=== PATIENT | male | born 1960 | race Caucasian/White ===

== ENCOUNTER 2020-05-11 16:53 | Emergency (ER) | payer MEDICARE, SELFPAY ==
[2020-05-11 16:53] VITALS: BP 181/102; PULSE 110; RESP 18; TEMP 37.1; O2SAT 98; BMI 36.5
--- NOTE | 2020-05-11 17:02 | CT_ITS ---
PROCEDURE: CT ABDOMEN PELVIS W CON CLINICAL INDICATION: swelling, abscess left groin COMPARISON: No exams were available for comparison TECHNIQUE: IV Contrast: 75ML OPTIRAY 350 Oral Contrast none given Axial images obtained with sagittal and coronal reformats. All CT scans at the facility use one or more dose reduction, viz: automated exposure control, ma/kV adjustment per patient size (including targeted exams where dose is matched to indication, i.e. head), or iterative reconstruction technique. FINDINGS: Lower thorax: The lower lung hurt are clear and there is no pleural fluid. Cardiac size is normal. ABDOMEN: Liver: No masses or biliary dilatation. Gallbladder: The gallbladder is normal size and there are multiple tiny calcified gallstones near the neck of the gallbladder. Pancreas: No masses or peripancreatic fluid collections. Spleen: unremarkable Adrenals: unremarkable Kidneys/ureters: The kidneys are normal in size and show symmetrical function. There is a tiny nonobstructing calculus lower pole left kidney. ABDOMEN & PELVIS: Stomach bowel: There is a small sliding hiatal hernia. The stomach is moderately distended with ingested food particles revised appears normal. The duodenal sweep and small bowel appear normal. The appendix is normal in caliber and partially air-filled. There is moderate stool and gas seen in the ascending colon. There is moderate gas seen throughout the remainder of the colon. There are few scattered diverticuli of the sigmoid colon but there is no evidence of diverticulitis. Peritoneum: No abnormal fluid collections. No obvious inflammatory changes. No free air. There is a moderate-sized periumbilical hernia containing fat only. The mouth of the hernia measures 6.4 cm. Lymph nodes: No enlarged lymph nodes apparent. Vasculature: There is minimal scattered arteriosclerotic calcification of the abdominal aorta but there is no aneurysm. Bones: Mild multilevel degenerate changes are seen lower thoracic and lower lumbar spine PELVIS: Reproductive: Unremarkable Bladder: The urinary bladder is mildly distended with urine and appears normal. Prostate is normal size. Appendix: Normal IMPRESSION: 1. Cholelithiasis 2. Moderate-sized periumbilical hernia containing fat only, tiny non-obstructing left renal calculus as noted. Dictated by: Dr. Buzz Kemp MD 05/12/2020 08:54 Dr. Buzz Kemp MD in [place] 05/12/2020 08:54
[2020-05-11 17:27] LABS: Basophils % 0.3 % (0.1-2.0); Eosinophils # 0.1 K/mm3 (0.0-0.4); Eosinophils % 1.5 % (0.1-12.0); Hematocrit 36.8 % (42.0-52.0); Hemoglobin 10.9 g/dL (14.1-18.0); Lymphocytes # 1.1 K/mm3 (0.7-4.5); Mean Corpuscular HGB Conc 29.6 g/dL (31.8-35.4); Mean Corpuscular Hemoglobin 26.3 pg (27.0-31.2); Mean Corpuscular Volume 88.8 fl (80-94); Mean Platelet Volume 8.6 fl (7.4-10.4); Monocytes # 0.2 K/mm3 (0.1-1.0); Monocytes % 5.2 % (1.7-9.3); Neutrophils # 2.7 K/mm3 (1.8-7.8); Platelet Count 187 K/mm3 (142-424); Red Blood Count 4.14 M/mm3 (4.60-6.20); Red Cell Distribution Width 13.4 % (11.5-17.5); White Blood Count 4.2 K/mm3 (4.8-10.8)
[2020-05-11 17:38] LABS: Chloride 104 mmol/L (98-107)
[2020-05-11 17:39] LABS: Potassium 3.6 mmoL/L (3.5-5.1); Sodium 141 mmol/L (136-145)
[2020-05-11 17:41] LABS: Blood Urea Nitrogen 8 mg/dl (9-20); Creatinine Clearance Estimated 202 mL/min (50-200); Estimated Glomerular Filt Rate 137 ml/min (>60); GFR (African American) 166 ML/MIN (>60)
[2020-05-11 17:42] LABS: Alanine Aminotransferase 24 U/L (12-78); Albumin Level 4.3 g/dl (3.5-5.0); Albumin/Globulin Ratio 1.3 (1.1-1.8); Alkaline Phosphatase 90 U/L (38-126); Anion Gap 14.6 mEq/L (5-15); Aspartate Amino Transferase 24 U/L (17-59); Bilirubin,Total 0.4 mg/dl (0.2-1.3); Calcium 9.1 mg/dl (8.4-10.2); Carbon Dioxide 26 mmol/L (22.0-30.0); Globulin 3.4 g/dL (1.3-3.2); Glucose 257 mg/dl (74-100); Total Protein,Serum 7.7 g/dl (6.3-8.2)
[2020-05-11 17:43] LABS: Lactic Acid 2.6 mmol/L (0.7-2.1)
--- NOTE | 2020-05-11 18:08 | HMH.EDSKAF ---
ED Disposition Clinical Impression: Abscess of left thigh, Tinea cruris Hypertension Qualifiers: Hypertension type: essential hypertension Qualified Code(s): I10 - Essential (primary) hypertension Disposition: Home, Self-Care Condition on Discharge: Good Instructions: DI for Skin Abscess Prescriptions: Sulfamethoxazole/Trimethoprim [Bactrim DS tablet] 1 each PO BID 10 Days #20 tab Prescription Printed cephALEXin [Keflex 500mg Cap] 500 mg PO QID 10 Days #40 cap Prescription Printed Ketoconazole [Ketoconazole 2% Cream 15gm] 1 applicatio TP TID #30 cream..g. Prescription Printed Referrals: Aníbal Fontana MD [Primary Care Provider] - Alberto Koehler MD [Staff Physician] - - Critical Care Critical Care Time: No Attestation: On 05/11/20, the high probability of a clinically significant, sudden or life threatening deterioration of the following system(s) required my full and direct attention, intervention and personal management. The time I documented below is in addition to time spent performing reported procedures but includes the following listed in this critical care notation. Medical Decision Making - Medical Records Medical records reviewed: Yes: I reviewed the patient's medical records. - Wiliam Inquiry Pt receiving controlled substance: No Vital Signs: 05/11/20 16:53 05/11/20 18:48 Temperature 98.8 F Temperature Source Oral Pulse Rate [Radial] 110 H 82 Respiratory Rate 18 20 Blood Pressure [Right Arm] 181/102 H 211/76 H Blood Pressure Mean [Right Arm] 128 121 Blood Pressure Source [Right Arm] Automatic Cuff Blood Pressure Position [Right Arm] Sitting Sitting 02 Sat by Pulse Oximetry 98 97 Oxygen Delivery Method Room Air - Lab Data Lab Results 05/11/20 17:15: WBC 4.2 L, RBC 4.14 L, Hgb 10.9 L, Hct 36.8 L, MCV 88.8, MCH 26.3 L, MCHC 29.6 L, RDW 13.4, Plt Count 187, MPV 8.6, Neut % (Auto) 66.0, Lymph % (Auto) 27.0, Luna % (Auto) 5.2, Eos % (Auto) 1.5, Baso % (Auto) 0.3, Neut # (Auto) 2.7, Lymph # (Auto) 1.1, Luna # (Auto) 0.2, Eos # (Auto) 0.1, Baso # (Auto) 0.0 05/11/20 17:15: Sodium 141, Potassium 3.6, Chloride 104, Carbon Dioxide 26, Anion Gap 14.6, BUN 8 L, Creatinine 0.60 L, Estimated Creat Clear 202, Estimated GFR 137, Est GFR ( Amer) 166, Glucose 257 H, Calcium 9.1, Total Bilirubin 0.4, AST 24, ALT 24, Alkaline Phosphatase 90, Total Protein 7.7, Albumin 4.3, Globulin 3.4 H, Albumin/Globulin Ratio 1.3 05/11/20 17:15: Lactate 2.6 H 05/11/20 18:40: Urine Color Yellow, Urine Appearance Clear, Urine pH 6.0, Ur Specific [place] 1.015, Urine Protein Negative, Urine Glucose (UA) 3+, Urine Ketones Trace, Urine Blood Negative, Urine Nitrate Negative, Urine Bilirubin Negative, Urine Urobilinogen 0.2, Ur Leukocyte Esterase Negative, Urine WBC Occasional Result diagrams: 05/11/20 17:15 05/11/20 17:15 Orders (Tests/Meds): ED MEDICATIONS Generic Name Dose Route Start Last Admin Trade Name Freq PRN Reason Stop Dose Admin Sodium Chloride 1,000 mls @ 999 mls/hr 05/11/20 17:15 05/11/20 17:17 Sod Chlor 0.9% 1000ml Bag IV 05/11/20 18:15 999 mls/hr .Q1H1M KIMBERLY Administration Ceftriaxone Sodium 1 gm/ 50 mls @ 100 mls/hr 05/11/20 19:00 05/11/20 19:00 Sodium Chloride IV 05/25/20 18:59 100 mls/hr Q24H KIMBERLY Administration Protocol Discontinued Medications Generic Name Dose Route Start Last Admin Trade Name Freq PRN Reason Stop Dose Admin Ioversol 75 ml 05/11/20 18:32 05/11/20 18:33 Ioversol-350 (74%) 100ml Vial IV 05/11/20 18:33 75 ml ONCE ONE Administration Protocol Ioversol 75 ml 05/11/20 18:35 05/11/20 18:36 Ioversol-350 (74%) 100ml Vial IV 05/11/20 18:36 75 ml ONCE ONE Administration Protocol Morphine Sulfate 4 mg 05/11/20 17:18 05/11/20 17:19 Morphine 4mg/Ml Syringe IV 05/11/20 17:19 4 mg ONCE ONE Administration Ondansetron HCl 4 mg 05/11/20 17:18 05/11/20 17:19 Ondansetron 4mg/2ml Vial IV 05/11/20 17:
[2020-05-11 18:43] LABS: Microscopic, Urine URINE MICROSCOPIC (MICROSCOPIC)
[2020-05-11 18:48] VITALS: BP 211/76; PULSE 82; RESP 20; O2SAT 97
[2020-05-11 19:03] LABS: Appearance,Urine CLEAR (Clear); Bilirubin,Urine Negative (Negative); Blood, Urine Negative (Negative); Color,Urine YELLOW (Yellow); Glucose,Urine (UA) 3+ (Negative); Ketones,Urine TRACE (Negative); Leukocyte Esterase,Urine Negative (Negative); Nitrate,Urine Negative (Negative); Protein,Urine Negative (Negative); Specific Gravity, Urine 1.015 (1.005-1.030); Urobilinogen,Urine 0.2 EU/dl (0.2)
--- NOTE | 2020-05-11 19:06 | PC.NURSE ---
daughter at bedside
[2020-05-11 19:07] LABS: WBC,Urine Occasional #/hpf (0-3)
[2020-05-11 20:27] VITALS: BP 159/75; PULSE 90; RESP 13; TEMP 36.6; O2SAT 98
== END 2020-05-11 20:33 | disposition home or self-care (01) ==
PROVIDERS: Emergency Provider Emergency Medicine; PCP Family Medicine
DX: L02.416 Cutaneous abscess of left lower limb (principal); I10 Essential (primary) hypertension; B35.6 Tinea cruris; Z88.0 Allergy status to penicillin
CPT/HCPCS: 74177; 80053; 81001; 83605; 85025; 96365; 96375; 99283; J2405; Q9967

== ENCOUNTER 2021-11-14 16:24 | Emergency (ER) | payer MEDICARE, SELFPAY ==
[2021-11-14] VITALS (7 sets, daily range): BP systolic 138–166; BP diastolic 80–93; PULSE 82–92; RESP 16–20; TEMP 36.8–37; O2SAT 98–100; BMI 25.7; BMI 25.8
--- NOTE | 2021-11-14 16:13 | ECG_ITS ---
APPROVED REPORT Exam: Resting ECG HR:94 bpm ECG Measurements Heart Rate 94 AXES ND 174 P 45 QRSd 101 QRS 14 QT 356 T 59 QTc 408 Conclusion SINUS RHYTHM NORMAL ECG UNCONFIRMED REPORT Electronically signed by : Juan Starks MD 11/16/2021 20:16:04
--- NOTE | 2021-11-14 16:26 | XR_ITS ---
PROCEDURE INFORMATION: Exam: XR Chest Exam date and time: 11/14/2021 4:25 PM Age: 61 years old Clinical indication: Pain; Chest pressure; Additional info: Chest pain TECHNIQUE: Imaging protocol: XR of the chest. Views: 2 views. COMPARISON: CR CXR2 CHEST-AP VIEW ONLY 01/12/2017 12:03 AM FINDINGS: Lungs: No lobar consolidation, pleural effusion or pulmonary edema. Pleural spaces: See Lungs finding. Heart/Mediastinum: Unremarkable. No cardiomegaly. Bones/joints: Unremarkable. IMPRESSION: No lobar consolidation, pleural effusion or pulmonary edema. Plain films are relatively insensitive for detecting any possible ground glass opacities.
[2021-11-14 16:35] LABS: Basophils # 0.1 K/mm3 (0-0.2); Basophils % 0.8 % (0.1-2.0); Eosinophils # 0.1 K/mm3 (0.0-0.4); Eosinophils % 1.5 % (0.1-12.0); Hematocrit 39.1 % (42.0-52.0); Hemoglobin 13.4 g/dL (14.1-18.0); Lymphocytes # 0.8 K/mm3 (0.7-4.5); Lymphocytes % 12.4 % (10-50); Mean Corpuscular HGB Conc 34.3 g/dL (31.8-35.4); Mean Corpuscular Hemoglobin 30.7 pg (27.0-31.2); Mean Corpuscular Volume 89.7 fl (80-94); Mean Platelet Volume 8.3 fl (7.4-10.4); Monocytes # 0.5 K/mm3 (0.1-1.0); Monocytes % 7.6 % (1.7-9.3); Neutrophils # 4.9 K/mm3 (1.8-7.8); Neutrophils % 77.8 % (37.0-80.0); Platelet Count 271 K/mm3 (142-424); Red Blood Count 4.36 M/mm3 (4.60-6.20); White Blood Count 6.2 K/mm3 (4.8-10.8)
--- NOTE | 2021-11-14 16:41 | XR_ITS ---
PROCEDURE INFORMATION: Exam: XR Right Foot Exam date and time: 11/14/2021 4:48 PM Age: 61 years old Clinical indication: Pain; Foot; Right; Additional info: Cellulitis, dropped tools onto foot last week TECHNIQUE: Imaging protocol: XR Right foot. Views: 3 or more views. COMPARISON: CR [id number] KNEE-3 VIEWS-RT 01/12/2017 12:05 AM FINDINGS: Bones/joints: Acute fractures midportion in base proximal phalanx of the 4th toe with intra-articular extension and moderate displacement of fragments. Moderate degenerative changes most evident in the 1st ray. Vascular calcifications. Calcaneal spurring. Soft tissues: Swelling. IMPRESSION: Acute fractures midportion in base proximal phalanx of the 4th toe with intra-articular extension and moderate displacement of fragments.
[2021-11-14 16:53] LABS: Anion Gap 10.2 mEq/L (5-15); Blood Urea Nitrogen 12 mg/dl (9-20); Calcium 8.6 mg/dl (8.4-10.2); Carbon Dioxide 28 mmol/L (22.0-30.0); Chloride 101 mmol/L (98-107); Creatinine Clearance Estimated 80 mL/min (50-200); Estimated Glomerular Filt Rate 219 ml/min (>60); GFR (African American) 265 ML/MIN (>60); Glucose 163 mg/dl (74-100); Potassium 3.2 mmoL/L (3.5-5.1); Sodium 136 mmol/L (136-145)
[2021-11-14 16:58] LABS: C-Reactive Protein 68.6 mg/L (0-4)
--- NOTE | 2021-11-14 17:00 | PC.NURSE ---
Updated pt on POC. Advised him MD was tied up with critical pt at this time. Pt understanding at this time. No new needs
[2021-11-14 17:09] LABS: Troponin I 0.01 ng/ml (0.00-0.034)
[2021-11-14 17:11] LABS: Erythrocyte Sedimentation Rate 48 mm/hr (0-20)
--- NOTE | 2021-11-14 18:08 | HMH.EDGENADL ---
ED Disposition Clinical Impression: Cellulitis Qualifiers: Site of cellulitis: extremity Site of cellulitis of extremity: lower extremity Laterality: right Qualified Code(s): L03.115 - Cellulitis of right lower limb Phalanx fracture, foot Qualifiers: Encounter type: initial encounter Toe: unspecified toe Fracture type: closed Fracture alignment: displaced Laterality: right Qualified Code(s): S92.911A - Unspecified fracture of right toe(s), initial encounter for closed fracture Disposition: Left Against Medical Advice Condition on Discharge: Fair Additional Instructions: Take antibiotics as directed. Please return to the ED with any worsening or concerning symptoms. You need to follow-up with your PCP on Wednesday, keep brace on for comfort. Prescriptions: Sulfamethoxazole/Trimethoprim [Bactrim DS tablet] 2 each PO BID 10 Days #40 tab Transmission Status: [facility] Cefdinir [Omnicef 300mg Capsule] 300 mg PO BID #20 cap Transmission Status: Pending to [id number] Referrals: Aníbal Fontana MD [Primary Care Provider] - - Critical Care Critical Care Time: No Attestation: On 11/14/21, the high probability of a clinically significant, sudden or life threatening deterioration of the following system(s) required my full and direct attention, intervention and personal management. The time I documented below is in addition to time spent performing reported procedures but includes the following listed in this critical care notation. Medical Decision Making - Medical Records Medical records reviewed: Yes: I reviewed the patient's medical records. - Wiliam Inquiry Pt receiving controlled substance: No Vital Signs: 11/14/21 16:25 11/14/21 16:30 11/14/21 17:00 Temperature 98.6 F Temperature Source Oral Pulse Rate 91 H 90 Pulse Rate [Left Radial] 92 H Respiratory Rate 20 18 18 Blood Pressure 138/80 161/89 H Blood Pressure [Right Arm] 138/80 Blood Pressure Mean 107 Blood Pressure Mean [Right Arm] 99 Blood Pressure Source [Right Arm] Automatic Cuff Blood Pressure Position [Right Arm] Sitting 02 Sat by Pulse Oximetry 98 100 100 Oxygen Delivery Method Room Air 11/14/21 17:30 11/14/21 18:00 11/14/21 18:30 Temperature Temperature Source Pulse Rate 88 87 89 Pulse Rate [Left Radial] Respiratory Rate 18 17 16 Blood Pressure 166/92 H 161/93 H 145/81 H Blood Pressure [Right Arm] Blood Pressure Mean 107 104 95 Blood Pressure Mean [Right Arm] Blood Pressure Source [Right Arm] Blood Pressure Position [Right Arm] 02 Sat by Pulse Oximetry 100 100 100 Oxygen Delivery Method - Lab Data Lab Results 11/14/21 16:27: WBC 6.2, RBC 4.36 L, Hgb 13.4 L, Hct 39.1 L, MCV 89.7, MCH 30.7, MCHC 34.3, RDW 13.0, Plt Count 271, MPV 8.3, Neut % (Auto) 77.8, Lymph % (Auto) 12.4, Nolan % (Auto) 7.6, Eos % (Auto) 1.5, Baso % (Auto) 0.8, Neut # (Auto) 4.9, Lymph # (Auto) 0.8, Nolan # (Auto) 0.5, Eos # (Auto) 0.1, Baso # (Auto) 0.1 11/14/21 16:27: Sodium 136, Potassium 3.2 L, Chloride 101, Carbon Dioxide 28, Anion Gap 10.2, BUN 12, Creatinine 0.40 L, Estimated Creat Clear 80, Estimated GFR 219, Est GFR ( Amer) 265, Glucose 163 H, Calcium 8.6, Troponin I 0.01 11/14/21 16:27: ESR 48 H 11/14/21 16:27: C-Reactive Protein 68.6 H Result diagrams: 11/14/21 16:27 11/14/21 16:27 Orders (Tests/Meds): ED MEDICATIONS Generic Name Dose Route Start Last Admin Trade Name Freq PRN Reason Stop Dose Admin Ondansetron HCl 4 mg 11/14/21 16:41 Ondansetron 4mg/2ml Vial IV 12/14/21 16:40 Q6 PRN Nausea And Vomiting Sodium Chloride 10 ml 11/14/21 16:25 Sodium Chloride 0.9% 10ml Flush Syringe IV 12/14/21 16:24 NEEDED PRN Maintain IV Site Discontinued Medications Generic Name Dose Route Start Last Admin Trade Name Freq PRN Reason Stop Dose Admin Oxycodone HCl 5 mg 11/14/21 16:41 11/14/21 16:45 Oxycodone 5mg Immediate Release Table
--- NOTE | 2021-11-14 18:36 | PC.NURSE ---
Let pt know MD was going to review all of his test results and let him know POC. PT agreeable
== END 2021-11-14 19:59 | disposition left against medical advice (07) ==
PROVIDERS: Emergency Provider Emergency Medicine; PCP Family Medicine
DX: L03.115 Cellulitis of right lower limb (principal); S92.911A Unspecified fracture of right toe(s), initial encounter for closed fracture; E11.9 Type 2 diabetes mellitus without complications; I10 Essential (primary) hypertension; I25.10 Atherosclerotic heart disease of native coronary artery without angina pectoris; R07.9 Chest pain, unspecified; Z88.0 Allergy status to penicillin
CPT/HCPCS: 71046; 73630; 80048; 84484; 85025; 85651; 86140; 93005; 99284

== ENCOUNTER 2022-09-07 22:44 | Emergency (ER) | payer MEDICARE, SELFPAY ==
[2022-09-07 23:21] VITALS: BP 189/119; PULSE 94; RESP 18; TEMP 36.7; O2SAT 98; BMI 27.4
--- NOTE | 2022-09-07 23:25 | HMH.EDEXTP ---
Discharge Plan Disposition Patient Disposition: Home, Self-Care Prescriptions Prescriptions: New sulfamethoxazole-trimethoprim [Bactrim DS] 800-160 mg Tablet 1 tab PO Q12H Qty: 14 0RF cephalexin [cephalexin] 500 mg capsule 500 mg PO TID Qty: 30 0RF No Action cephalexin 500 MG capsule 500 mg PO QID 10 Days Qty: 40 0RF ketoconazole 15 GM cream 1 applicatio TP TID Qty: 30 0RF sulfamethoxazole-trimethoprim 1 EACH tablet 1 each PO BID 10 Days Qty: 20 0RF sulfamethoxazole-trimethoprim 1 EACH tablet 2 each PO BID 10 Days Qty: 40 0RF cefdinir 300 MG capsule 300 mg PO BID Qty: 20 0RF Referrals Follow up/Referrals: Aníbal Fontana MD [Primary Care Provider] - See instructions Clinical Impressions Clinical Impression: Cellulitis Instructions Patient Instructions: Cellulitis Discharge ED Provider: Emmanuel (ED),Danilo Ko Extremity Problem HPI General Chief complaint: Extremity Injury, Upper Stated complaint: Right hand warm to touch, swollen,fever Time Seen by Provider: 09/07/22 23:26 Mode of Arrival: Ambulatory Source of Information: Patient, Significant Other and Medical Record Limitations: No Limitations Description of Symptoms (Recalled from ER Triage Doc. by RN): PT PRESENTS to er with c/o swelling redness and tenderness to right hand. States he injured his right hand 4 days ago while working on a car. Denies any other injury. Denies fever. Last tetanus was within the last couple of years per pt. History of Present Illness HPI Narrative: about 5 days ago with abrasion to dorsum of rt hand - and now has reddness and swelling dorsum of rt hand - MD Complaint: extremity pain and extremity swelling Onset (ago): day(s) Consistency: constant Location: right and upper extremity Related Data Previous Rx's Medication Instructions Recorded cephalexin 500 mg capsule 500 mg PO QID 10 days #40 caps 05/11/20 ketoconazole 2 % topical cream 1 applicatio TP TID ##30 05/11/20 sulfamethoxazole 800 1 each PO BID 10 days #20 tabs 05/11/20 mg-trimethoprim 160 mg tablet cefdinir 300 mg capsule 300 mg PO BID #20 caps 11/14/21 sulfamethoxazole 800 2 each PO BID 10 days #40 tabs 11/14/21 mg-trimethoprim 160 mg tablet cephalexin 500 mg capsule 500 mg PO TID #30 caps 09/08/22 sulfamethoxazole 800 1 tab PO Q12H #14 tabs 09/08/22 mg-trimethoprim 160 mg tablet (Bactrim DS) Allergies Allergy/AdvReac Type Severity Reaction Status Date / Time Penicillins [PENICILLINS] Allergy Mild Verified 05/11/20 19:00 [facility] Disclaimer: The information contained in this section may have been updated after the patient was seen, as this information can be updated by other users. Social History Smoking Status: Never smoker alcohol intake: never current occupational status: other Travel in the last 8 weeks: None household members: other housing: other ROS Obtained: Yes All systems reviewed & no additional complaints except as documented Physical Exam General General appearance: alert Head Head exam: normocephalic Eye Eye exam: Present PERRL and EOMI ENT ENT exam: Present mucous membranes moist Neck Neck exam: Present trachea midline Respiratory Respiratory exam: Absent respiratory distress Cardiovascular Cardiovascular exam: Present regular rate Abdominal Exam Abdominal exam: Present soft Expanded Upper Extremity Exam Right: Hand exam: Present tenderness, swelling, erythema and other (no drainage and has abrasion - kanavel signs ok ) Neuromotor exam: Normal wrist extension Vascular exam: Normal radial pulse Neurological Exam Neurological exam: Present alert, oriented X3 and CN II-XII intact Psychiatric Psychiatric exam: Present normal affect Skin Skin exam: Absent rash Medical Decision Making Medical Records Medical records reviewed: Yes I reviewed the patient's medical records. Wiliam Inquiry Pt receiving controlled substance: No Vital Signs:
[2022-09-07 23:52] LABS: Basophils % 0.4 % (0.1-2.0); Eosinophils # 0.2 K/mm3 (0.0-0.4); Eosinophils % 1.7 % (0.1-12.0); Hematocrit 44.2 % (42.0-52.0); Hemoglobin 14.6 g/dL (14.1-18.0); Lymphocytes # 1.8 K/mm3 (0.7-4.5); Lymphocytes % 17.9 % (10-50); Mean Corpuscular Hemoglobin 29.7 pg (27.0-31.2); Mean Corpuscular Volume 89.9 fl (80-94); Mean Platelet Volume 8.2 fl (7.4-10.4); Monocytes # 0.6 K/mm3 (0.1-1.0); Monocytes % 5.7 % (1.7-9.3); Neutrophils # 7.5 K/mm3 (1.8-7.8); Neutrophils % 74.3 % (37.0-80.0); Platelet Count 248 K/mm3 (142-424); Red Blood Count 4.92 M/mm3 (4.60-6.20); White Blood Count 10.1 K/mm3 (4.8-10.8)
[2022-09-07 23:56] LABS: Alanine Aminotransferase 25 U/L (12-78); Albumin Level 4.4 g/dl (3.5-5.0); Albumin/Globulin Ratio 1.2 (1.1-1.8); Alkaline Phosphatase 112 U/L (38-126); Anion Gap 4.9 mEq/L (5-15); Aspartate Amino Transferase 25 U/L (17-59); Bilirubin,Total 0.5 mg/dl (0.2-1.3); Blood Urea Nitrogen 11 mg/dl (9-20); Carbon Dioxide 32 mmol/L (22.0-30.0); Chloride 106 mmol/L (98-107); Creatinine Clearance Estimated 84 mL/min (50-200); Estimated Glomerular Filt Rate 168 ml/min (>60); GFR (African American) 204 ML/MIN (>60); Globulin 3.7 g/dL (1.3-3.2); Glucose 169 mg/dl (74-100); Potassium 3.9 mmoL/L (3.5-5.1); Sodium 139 mmol/L (136-145); Total Protein,Serum 8.1 g/dl (6.3-8.2)
[2022-09-07 23:59] VITALS: BP 157/84; PULSE 82; O2SAT 100
--- NOTE | 2022-09-08 | CT_ITS ---
PROCEDURE INFORMATION: Exam: CT Right Upper Extremity With Contrast, Hand Exam date and time: 09/08/2022 12:20 AM Age: 62 years old Clinical indication: Swelling and other: Redness; Patient HX: PT states he was working on a car 4-5 days ago, injured hand. Now C/O right hand redness and swelling; Additional info: Hand injury TECHNIQUE: Imaging protocol: Computed tomography of the Right upper extremity with contrast. Exam focused on the hand. 3D rendering (Not supervised by radiologist): MIP and/or 3D reconstructed images were created by the technologist. Radiation optimization: All CT scans at this facility use at least one of these dose optimization techniques: automated exposure control; mA and/or kV adjustment per patient size (includes targeted exams where dose is matched to clinical indication); or iterative reconstruction. Contrast material: ISOVUE; Contrast volume: 75 ml; Contrast route: IV; Other protocol: This patient has received 0 known CTs and 0 known cardiac nuclear medicine studies in the 12 months prior to the current study. COMPARISON: No relevant prior studies available. FINDINGS: Bones/joints: No fracture or bone destruction. Visualized radial and ulnar arteries appear patent. Soft tissues: Diffuse swelling of the right hand with subcutaneous infiltration. No significant skin thickening to indicate cellulitis. Other findings: No focal fluid collections. IMPRESSION: 1. Diffuse swelling of the right hand with subcutaneous infiltration. 2. No significant skin thickening to indicate cellulitis. 3. No focal fluid collections. 4. No fracture or bone destruction. 5. Visualized radial and ulnar arteries appear patent.
[2022-09-08 00:01] LABS: C-Reactive Protein 7.5 mg/L (0-4)
[2022-09-08 00:15] LABS: Procalcitonin 0.045 ng/mL (0.0-2.0)
--- NOTE | 2022-09-08 00:18 | PC.NURSE ---
patient gone to CT at this time.
[2022-09-08 00:27] LABS: Erythrocyte Sedimentation Rate 37 mm/hr (0-20)
--- NOTE | 2022-09-08 00:35 | PC.NURSE ---
patient back in room at this time.
== END 2022-09-08 02:36 | disposition home or self-care (01) ==
PROVIDERS: Emergency Provider Emergency Medicine; PCP Family Medicine
DX: L03.113 Cellulitis of right upper limb (principal)
CPT/HCPCS: 73201; 80053; 84145; 85025; 85651; 86140; 87040; 96365; 96367; 96375; 99285; J0131; J2405; Q9967

== ENCOUNTER 2024-05-19 20:41 | Emergency (ER) | payer MEDICARE, SELFPAY ==
[2024-05-19] VITALS (8 sets, daily range): BP systolic 156–250; BP diastolic 87–124; PULSE 80–86; RESP 22; TEMP 37; O2SAT 94–97; BMI 35.5
--- NOTE | 2024-05-19 20:44 | ED_ITS ---
<Statement entered by Radha Mills DO - 05/19/24 23:08> I was consulted by the JOAN, and we discussed the complexity of the problems being addressed. I approved the treatment and management plan for this patient's care in the emergency department, thus performing a substantive portion of the medical decision making. Radha Mills DO Discharge Plan Disposition Patient Disposition: Xfer Short-Term Hosp Condition: Serious Prescriptions Prescriptions: No Action sulfamethoxazole-trimethoprim [Bactrim DS] 800-160 mg Tablet 1 tab PO Q12H Qty: 14 0RF cephalexin [cephalexin] 500 mg capsule 500 mg PO TID Qty: 30 0RF cephalexin 500 MG capsule 500 mg PO QID 10 Days Qty: 40 0RF ketoconazole 15 GM cream 1 applicatio TP TID Qty: 30 0RF sulfamethoxazole-trimethoprim 1 EACH tablet 1 each PO BID 10 Days Qty: 20 0RF sulfamethoxazole-trimethoprim 1 EACH tablet 2 each PO BID 10 Days Qty: 40 0RF cefdinir 300 MG capsule 300 mg PO BID Qty: 20 0RF Referrals Follow up/Referrals: Provider,Referral, MD [Primary Care Provider] - See instructions Clinical Impressions Clinical Impression: Acute calculous cholecystitis, Transaminitis, Hyperbilirubinemia Instructions Patient Instructions: DI for Acute Abdominal Pain Print Language Print Language: Armenian Discharge ED Provider: Brian Seals General Adult HPI <MARYLU Bruner - Last Filed: 05/19/24 23:06> General Chief complaint: Abdominal Pain Stated complaint: stomach pain with vomiting Time Seen by Provider: 05/19/24 20:44 History of Present Illness HPI narrative: Patient presents for evaluation of acute abdominal pain. Patient reports that he has never had any abdominal surgery however over the last 24 hours she has had increasing abdominal discomfort. He is on a bunch of medications that kind of cause constipation and to that end he is attempted to treat what he thought was constipation with both an enema and mag citrate with no relief. Today he began vomiting and has been unable to keep anything down by mouth, again he also reports that he has not had a bowel movement and has not passed gas today. He denies any fever chills hemoptysis hematochezia melena hematemesis hematuria. Related Data Previous Rx's ?Medication ?Instructions ?Recorded cephalexin 500 mg capsule 500 mg PO QID 10 days #40 caps 05/11/20 ketoconazole 2 % topical cream 1 applicatio TP TID ##30 05/11/20 sulfamethoxazole 800 1 each PO BID 10 days #20 tabs 05/11/20 mg-trimethoprim 160 mg tablet cefdinir 300 mg capsule 300 mg PO BID #20 caps 11/14/21 sulfamethoxazole 800 2 each PO BID 10 days #40 tabs 11/14/21 mg-trimethoprim 160 mg tablet cephalexin 500 mg capsule 500 mg PO TID #30 caps 09/08/22 sulfamethoxazole 800 1 tab PO Q12H #14 tabs 09/08/22 mg-trimethoprim 160 mg tablet (Bactrim DS) Allergies Allergy/AdvReac Type Severity Reaction Status Date / Time Penicillins [PENICILLINS] Allergy Mild Verified 05/11/20 19:00 [facility] <MARYLU Bruner - Last Filed: 05/19/24 23:06> [facility] Disclaimer: The information contained in this section may have been updated after the patient was seen, as this information can be updated by other users. Social History Smoking Status: Current every day smoker alcohol intake: never current occupational status: other Travel in the last 8 weeks: None household members: other housing: other Other Medical History Have you received the Flu Vaccine for this season: No Have you received the Pneumonia Vaccine: No <MARYLU Bruner - Last Filed: 05/19/24 23:06> ROS Obtained: Yes Systems reviewed as appropriate & no additional complaints except as documented Physical Exam <MARYLU Bruner - Last Filed: 05/19/24 23:06> General General appearance: alert and in no apparent distress Respiratory Respiratory exam: Present normal lung sounds bilaterally Cardiovascular Cardiovascular exam: Present regular rate and normal rhythm Neurological Exam Neurological exam: Present alert and oriented X3 Medical Decision Making <MARYLU Bruner - Last Filed: 05/19/24 23:06> Medical Records Medical records reviewed: Yes I reviewed the patient's medical records. Screening: Per USPSTF and CDC recommendations, given the prevalence of disease in our region, it is our hospital?s policy to screen for HIV and viral Hepatitis for all patients aged 18 and over and those with ongoing risk factors. Wiliam Inquiry Pt receiving controlled substance: No Vital Signs: 05/19/24 20:57 05/19/24 21:00 05/19/24 21:08 Temperature 98.6 F Temperature Source Oral Pulse Rate 84 83 Pulse Rate [Right Brachial] 86 Respiratory Rate 22 Blood Pressure 203/106 H 212/107 H Blood Pressure [Right Radial Artery] 250/124 H Blood Pressure Mean 138 Blood Pressure Mean [Right Radial Artery] 166 Blood Pressure Position [Right Radial Artery] Sitting 02 Sat by Pulse Oximetry 97 97 97 Oxygen Delivery Method Room Air Lab Data Lab results reviewed: Yes I reviewed the patient's lab results. Lab Results 05/19/24 21:08: WBC 10.4, RBC 4.85, Hgb 14.6, Hct 42.8, MCV 88.2, MCH 30.1, MCHC 34.1, RDW 14.7, Plt Count 168, MPV 8.5, Neut % (Auto) 85.8 H, Lymph % (Auto) 8.3 L, [place] % (Auto) 5.4, Eos % (Auto) 0.2, Baso % (Auto) 0.3, Neut # (Auto) 9.0 H, Lymph # (Auto) 0.9, [place] # (Auto) 0.6, Eos # (Auto) 0.0, Baso # (Auto) 0.0, Total Counted 100, Neutrophils % (Manual) 82 H, Lymphocytes % (Manual) 10, Monocytes % (Manual) 8, Platelet Estimate Normal, RBC Morphology Normal, PT 11.2, INR 1.00, Sodium 141, Potassium 3.6, Chloride 104, Carbon Dioxide 30, Anion Gap 10.6, BUN 16, Creatinine 0.60 L, Estimated Creat Clear 105, Estimated GFR 136, Est GFR ( Amer) 164, Glucose 188 H, Calcium 9.0, Magnesium 1.8, Total Bilirubin 2.0 H, AST 301 H*, ALT 191 H, Alkaline Phosphatase 304 H, Total Protein 7.5, Albumin 4.2, Globulin 3.3 H, Albumin/Globulin Ratio 1.3, Lipase 130 05/19/24 22:19: Lactate 1.3 05/19/24 21:08 05/19/24 21:08 Orders (Tests/Meds): ED MEDICATIONS Generic Name Dose Route Start Last Admin Trade Name Freq PRN Reason Stop Dose Admin Sodium Chloride 10 ml 05/19/24 21:47 05/19/24 21:53 Sodium Chloride 0.9% 10ml Syr (Rad Only) IV 06/18/24 21:46 10 ml NEEDED PRN Administration Maintain IV Site Discontinued Medications Generic Name Dose Route Start Last Admin Trade Name Alfonzo PRN Reason Stop Dose Admin Acetaminophen 1,000 mg 05/19/24 20:50 05/19/24 21:15 Acetaminophen 1,000mg/100ml Vial IV 05/19/24 20:51 1,000 mg ONCE ONE Administration Sodium Chloride 1,000 mls @ 999 mls/hr 05/19/24 20:50 05/19/24 21:15 Sod Chlor 0.9% 1000ml Bag IV 05/19/24 21:50 999 mls/hr .Q1H1M ONE Administration Levofloxacin/Dextrose 750 mg in 150 mls @ 100 mls/hr 05/19/24 22:00 05/19/24 22:11 Levofloxacin 750mg/150ml Premix IV 05/29/24 21:59 100 mls/hr Q24H KIMBERLY Administration Metronidazole 500 mg in 100 mls @ 100 mls/hr 05/19/24 21:58 05/19/24 22:11 Flagyl 500mg/100ml Ivpb IV 05/19/24 22:57 100 mls/hr ONCE ONE Administration Levofloxacin/Dextrose 750 mg in 150 mls @ 100 mls/hr 05/19/24 22:16 05/19/24 22:23 Levofloxacin 750mg/150ml Premix IV 05/19/24 23:29 100 mls/hr ONCE ONE Administration Iopamidol 75 ml 05/19/24 21:47 05/19/24 21:53 Iopamidol-370 (76%);100ml Bottle IV 05/19/24 21:48 75 ml ONCE ONE Administration Ketorolac Tromethamine 15 mg 05/19/24 20:50 05/19/24 21:14 Ketorolac 30mg/Ml Vial IV 05/19/24 20:51 15 mg ONCE ONE Administration Morphine Sulfate 4 mg 05/19/24 21:55 05/19/24 22:11 Morphine 4mg/Ml Syringe IV 05/19/24 21:56 4 mg ONCE ONE Administration Ondansetron HCl 4 mg 05/19/24 20:44 05/19/24 21:15 Ondansetron 4mg Odt SL 05/19/24 20:45 4 mg ONCE ONE Administration ORDERS Category Date Time Status CT abdomen pelvis w con Stat Cat Scan 05/19/24 20:50 Completed CBC w/Auto Diff [Complete Blood Count Auto Diff] Stat Lab 05/19/24 21:08 Completed CMP [Comprehensive Metabolic Panel] Stat Lab 05/19/24 21:08 Completed INR [Prothrombin Time INR] Stat Lab 05/19/24 21:08 Completed Lactic Acid Stat Lab 05/19/24 22:19 Completed Lipase Stat Lab 05/19/24 21:08 Completed Magnesium Stat Lab 05/19/24 21:08 Completed Medical Decision Narrative: In summary patient is a 64-year-old male who presents to the emergency department for evaluation of cute abdominal pain. Patient is hemodynamically stable upon arrival, afebrile. Physical exam is remarkable for distended abdomen that feels slightly firm without rebound or guarding or rigidity. Patient does have a umbilical hernia that does feel widely patent but I am unable to reduce to the patient's body habitus, bowel sounds are present but distant and there is no focal quadrant tenderness it is all diffuse. Differential diagnosis includes constipation versus obstipation versus bowel obstruction etc. Initial workup will be conducted with hematologic labs CT scan abdomen pelvis with contrast. Initial interventions include crystalloid bolus and Tylenol for now along with Zofran. Initial workup reviewed by me shows his white count is 10.4 however his absolute neutrophil count is 9.0 creatinine 0.6 total bilirubin is 2 AST is 301 ALT is 191 alk phos is 304 and a lipase of 130 and my informal interpretation of his CT scan abdomen pelvis shows a dilated gallbladder with layering stones at the dome of the gallbladder on CAT scan with thick-walled gallbladder pericholecystic fluid prior to radiology read. Initiated the patient on Levaquin and Flagyl as he has a penicillin allergy. Had interactive discussion with our general surgeon regarding patient management. Given the findings is highly concerning for possible choledocholithiasis. I did attempt to contact her clay machine operator who is not on-call and unfortunate was unable to reach him. Given that the uncertainty of possibility of an MRCP Dr. Eller recommended transfer. I have contacted the [facility] transfer center at [phone] to initiate that process. I have not heard back from the [facility] and I have also initiated a transfer request to [facility] simultaneously and that process is pending at the time of handoff to Dr. Seals at 2300 hrs. <Brian Seals MD - Last Filed: 05/19/24 23:43> Vital Signs: 05/19/24 20:57 05/19/24 21:00 05/19/24 21:08 Temperature 98.6 F Temperature Source Oral Pulse Rate 84 83 Pulse Rate [Right Brachial] 86 Respiratory Rate 22 Blood Pressure 203/106 H 212/107 H Blood Pressure [Right Radial Artery] 250/124 H Blood Pressure Mean 138 Blood Pressure Mean [Right Radial Artery] 166 Blood Pressure Position [Right Radial Artery] Sitting 02 Sat by Pulse Oximetry 97 97 97 Oxygen Delivery Method Room Air Lab Data Lab Results 05/19/24 21:08: WBC 10.4, RBC 4.85, Hgb 14.6, Hct 42.8, MCV 88.2, MCH 30.1, MCHC 34.1, RDW 14.7, Plt Count 168, MPV 8.5, Neut % (Auto) 85.8 H, Lymph % (Auto) 8.3 L, [place] % (Auto) 5.4, Eos % (Auto) 0.2, Baso % (Auto) 0.3, Neut # (Auto) 9.0 H, Lymph # (Auto) 0.9, [place] # (Auto) 0.6, Eos # (Auto) 0.0, Baso # (Auto) 0.0, Total Counted 100, Neutrophils % (Manual) 82 H, Lymphocytes % (Manual) 10, Monocytes % (Manual) 8, Platelet Estimate Normal, RBC Morphology Normal, PT 11.2, INR 1.00, Sodium 141, Potassium 3.6, Chloride 104, Carbon Dioxide 30, Anion Gap 10.6, BUN 16, Creatinine 0.60 L, Estimated Creat Clear 105, Estimated GFR 136, Est GFR ( Amer) 164, Glucose 188 H, Calcium 9.0, Magnesium 1.8, Total Bilirubin 2.0 H, AST 301 H*, ALT 191 H, Alkaline Phosphatase 304 H, Total Protein 7.5, Albumin 4.2, Globulin 3.3 H, Albumin/Globulin Ratio 1.3, Lipase 130 05/19/24 22:19: Lactate 1.3 Orders (Tests/Meds): ED MEDICATIONS Generic Name Dose Route Start Last Admin Trade Name Freq PRN Reason Stop Dose Admin Sodium Chloride 10 ml 11/01/24 21:47 05/19/24 21:53 Sodium Chloride 0.9% 10ml Syr (Rad Only) IV 06/18/24 21:46 10 ml NEEDED PRN Administration Maintain IV Site Discontinued Medications Generic Name Dose Route Start Last Admin Trade Name Alfonzo PRN Reason Stop Dose Admin Acetaminophen 1,000 mg 05/19/24 20:50 05/19/24 21:15 Acetaminophen 1,000mg/100ml Vial IV 05/19/24 20:51 1,000 mg ONCE ONE Administration Sodium Chloride 1,000 mls @ 999 mls/hr 05/19/24 20:50 05/19/24 21:15 Sod Chlor 0.9% 1000ml Bag IV 05/19/24 21:50 999 mls/hr .Q1H1M ONE Administration Levofloxacin/Dextrose 750 mg in 150 mls @ 100 mls/hr 05/19/24 22:00 05/19/24 22:11 Levofloxacin 750mg/150ml Premix IV 05/29/24 21:59 100 mls/hr Q24H KIMBERLY Administration Metronidazole 500 mg in 100 mls @ 100 mls/hr 05/19/24 21:58 05/19/24 22:11 Flagyl 500mg/100ml Ivpb IV 05/19/24 22:57 100 mls/hr ONCE ONE Administration Levofloxacin/Dextrose 750 mg in 150 mls @ 100 mls/hr 05/19/24 22:16 05/19/24 22:23 Levofloxacin 750mg/150ml Premix IV 05/19/24 23:29 100 mls/hr ONCE ONE Administration Iopamidol 75 ml 05/19/24 21:47 05/19/24 21:53 Iopamidol-370 (76%);100ml Bottle IV 05/19/24 21:48 75 ml ONCE ONE Administration Ketorolac Tromethamine 15 mg 05/19/24 20:50 05/19/24 21:14 Ketorolac 30mg/Ml Vial IV 05/19/24 20:51 15 mg ONCE ONE Administration Morphine Sulfate 4 mg 05/19/24 21:55 05/19/24 22:11 Morphine 4mg/Ml Syringe IV 05/19/24 21:56 4 mg ONCE ONE Administration Ondansetron HCl 4 mg 05/19/24 20:44 05/19/24 21:15 Ondansetron 4mg Odt SL 05/19/24 20:45 4 mg ONCE ONE Administration ORDERS Category Date Time Status CT abdomen pelvis w con Stat Cat Scan 05/19/24 20:50 Completed CBC w/Auto Diff [Complete Blood Count Auto Diff] Stat Lab 05/19/24 21:08 Completed CMP [Comprehensive Metabolic Panel] Stat Lab 05/19/24 21:08 Completed INR [Prothrombin Time INR] Stat Lab 05/19/24 21:08 Completed Lactic Acid Stat Lab 05/19/24 22:19 Completed Lipase Stat Lab 05/19/24 21:08 Completed Magnesium Stat Lab 05/19/24 21:08 Completed Medical Decision Narrative: In summary patient is a 64-year-old male who presents to the emergency department for evaluation of cute abdominal pain. Patient is hemodynamically stable upon arrival, afebrile. Physical exam is remarkable for distended abdomen that feels slightly firm without rebound or guarding or rigidity. Patient does have a umbilical hernia that does feel widely patent but I am unable to reduce to the patient's body habitus, bowel sounds are present but distant and there is no focal quadrant tenderness it is all diffuse. Differential diagnosis includes constipation versus obstipation versus bowel obstruction etc. Initial workup will be conducted with hematologic labs CT scan abdomen pelvis with contrast. Initial interventions include crystalloid bolus and Tylenol for now along with Zofran. Initial workup reviewed by me shows his white count is 10.4 however his absolute neutrophil count is 9.0 creatinine 0.6 total bilirubin is 2 AST is 301 ALT is 191 alk phos is 304 and a lipase of 130 and my informal interpretation of his CT scan abdomen pelvis shows a dilated gallbladder with layering stones at the dome of the gallbladder on CAT scan with thick-walled gallbladder pericholecystic fluid prior to radiology read. Initiated the patient on Levaquin and Flagyl as he has a penicillin allergy. Had interactive discussion with our general surgeon regarding patient management. Given the findings is highly concerning for possible choledocholithiasis. I did attempt to contact her clay machine operator who is not on-call and unfortunate was unable to reach him. Given that the uncertainty of possibility of an MRCP Dr. Eller recommended transfer. I have contacted the [facility] transfer center at [phone] to initiate that process. I have not heard back from the [facility] and I have also initiated a transfer request to [facility] simultaneously and that process is pending at the time of handoff to Dr. Seals at 2300 hrs. Arnel GAYLE: I assumed care of the patient at the time of handoff from the prior provider. On reassessment patient is stable. I had an interactive discussion with Dr. Sanchez at the [facility] who accepted the patient in transfer. I was consulted by the JOAN, and we discussed the complexity of the problems being addressed. I approved the treatment and management plan for this patient?s care in the Emergency Department, thus performing a substantive portion of the medical decision making. Brian Seals MD Critical Care <MARYLU Bruner - Last Filed: 05/19/24 23:06> Critical Care Time Critical Care Time: No
--- NOTE | 2024-05-19 20:50 | CT_ITS ---
PROCEDURE INFORMATION: Exam: CT Abdomen And Pelvis With Contrast Exam date and time: 05/19/2024 9:37 PM Age: 64 years old Clinical indication: Other: No bm or flatus in 24 hours; Abdominal pain; Additional info: Acute abdominal pain, no bm or flatus in 24 hours TECHNIQUE: Imaging protocol: Computed tomography of the abdomen and pelvis with contrast. Radiation optimization: All CT scans at this facility use at least one of these dose optimization techniques: automated exposure control; mA and/or kV adjustment per patient size (includes targeted exams where dose is matched to clinical indication); or iterative reconstruction. Contrast material: ISOVUE; Contrast volume: 75 ml; Contrast route: IV; COMPARISON: 1. CT ABDOMEN PELVIS W CON 05/11/2020 6:14 PM 2. CR XR CHEST 2V 11/14/2021 4:25 PM FINDINGS: Liver: Normal. Gallbladder and biliary ducts: The gallbladder is distended with stones and wall thickening, correlate with any concern for cholecystitis and consider right upper quadrant ultrasound if warranted. Pancreas: There is fatty replacement of the pancreas. Possible subtle peripancreatic stranding, please correlate with lipase level. Spleen: Normal. Adrenal glands: The adrenal glands appear normal. Kidneys and ureters: There is nonspecific bilateral perinephric stranding. Stomach and bowel: There are scattered colonic diverticula. Appendix: No evidence of appendicitis. Intraperitoneal space: Unremarkable. Vasculature: The abdominal aorta and its major branches appear normal without evidence of aneurysm or stenosis. There are pelvic phleboliths. Lymph nodes: No lymphadenopathy. Urinary bladder: Unremarkable as visualized. Reproductive: No acute process. Bones/joints: The visualized osseous structures of the abdomen and pelvis appear normal for patient age. Soft tissues: There is bilateral gynecomastia. There is a large fat containing umbilical hernia. IMPRESSION: 1. The gallbladder is distended with stones and wall thickening, correlate with any concern for cholecystitis and consider right upper quadrant ultrasound if warranted. 2. No evidence for bowel obstruction. 3. Possible subtle peripancreatic stranding, please correlate with lipase level.
--- NOTE | 2024-05-19 21:07 | PC.NURSE ---
staff at [facility]
[2024-05-19] MEDS: KETOROLAC 30MG/ML VIAL 15 MG IV (21:14)
[2024-05-19] MEDS: ONDANSETRON 4MG ODT 4 MG SL (21:15)
[2024-05-19] MEDS: ACETAMINOPHEN 1,000MG/100ML VIAL 1000 MG IV (21:15)
[2024-05-19] MEDS: 0.9 % SODIUM CHLORIDE 1000ML 1,000 ML 999 ML IV (21:15)
[2024-05-19 21:21] LABS: Albumin Level 4.2 g/dl (3.5-5.0); Chloride 104 mmol/L (98-107); Potassium 3.6 mmoL/L (3.5-5.1); Sodium 141 mmol/L (136-145)
[2024-05-19 21:23] LABS: Lipase 130 U/L (23-300)
[2024-05-19 21:24] LABS: Alanine Aminotransferase 191 U/L (12-78); Albumin/Globulin Ratio 1.3 (1.1-1.8); Alkaline Phosphatase 304 U/L (38-126); Anion Gap 10.6 mEq/L (5-15); Aspartate Amino Transferase 301 U/L (17-59); Blood Urea Nitrogen 16 mg/dl (9-20); Carbon Dioxide 30 mmol/L (22.0-30.0); Creatinine Clearance Estimated 105 mL/min (50-200); Estimated Glomerular Filt Rate 136 ml/min (>60); GFR (African American) 164 ML/MIN (>60); Globulin 3.3 g/dL (1.3-3.2); Magnesium 1.8 mg/dl (1.6-2.3); Total Protein,Serum 7.5 g/dl (6.3-8.2)
[2024-05-19 21:25] LABS: Basophils % 0.3 % (0.1-2.0); Eosinophils % 0.2 % (0.1-12.0); Glucose 188 mg/dl (74-100); Hematocrit 42.8 % (42.0-52.0); Hemoglobin 14.6 g/dL (14.1-18.0); Lymphocytes # 0.9 K/mm3 (0.7-4.5); Lymphocytes % 8.3 % (10-50); Mean Corpuscular HGB Conc 34.1 g/dL (31.8-35.4); Mean Corpuscular Hemoglobin 30.1 pg (27.0-31.2); Mean Corpuscular Volume 88.2 fl (80-94); Mean Platelet Volume 8.5 fl (7.4-10.4); Monocytes # 0.6 K/mm3 (0.1-1.0); Monocytes % 5.4 % (1.7-9.3); Neutrophils % 85.8 % (37.0-80.0); Platelet Count 168 K/mm3 (142-424); Red Blood Count 4.85 M/mm3 (4.60-6.20); Red Cell Distribution Width 14.7 % (11.5-17.5); White Blood Count 10.4 K/mm3 (4.8-10.8)
[2024-05-19 21:28] LABS: Prothrombin Time 11.2 seconds (10.1-12.5)
[2024-05-19 21:30] LABS: MANUAL DIFFERENTIAL MANUAL DIFFERENTIAL (MANUAL DIFF)
[2024-05-19 21:37] LABS: Lymphocytes % 10 % (10-50); Monocytes % 8 % (2-9); Neutrophils % 82 % (42-76); Total Cells Counted 100
[2024-05-19 21:38] LABS: Platelet Estimate Normal; RBC Morphology Normal
[2024-05-19] MEDS: IOPAMIDOL-370 (76%);100ML BOTTLE 75 ML IV (21:53)
[2024-05-19] MEDS: SODIUM CHLORIDE 0.9% 10ML SYR (RAD ONLY) 10 ML IV (21:53)
[2024-05-19] MEDS: METRONIDAZ/SOD CHL 500 MG/100 ML PIGGYBACK 100 MG IV (22:11)
[2024-05-19] MEDS: MORPHINE 4MG/ML SYRINGE 4 MG IV (22:11)
[2024-05-19] MEDS: LEVOFLOXACIN/D5W 750 MG/150 ML 750 MG/150 ML PIGGYBACK 100 MG IV ×2 (22:11→22:23)
[2024-05-19 22:33] LABS: Lactic Acid 1.3 mmol/L (0.7-2.1)
[2024-05-20 00:28] VITALS: BP 151/93; PULSE 88; O2SAT 96
[2024-05-20 01:00] VITALS: BP 164/88; PULSE 77; O2SAT 95
[2024-05-20 01:30] VITALS: BP 143/79; PULSE 78; O2SAT 96
[2024-05-20 01:42] VITALS: BP 142/78; PULSE 80; RESP 18; TEMP 36.6; O2SAT 98
== END 2024-05-20 01:43 | disposition short-term general hospital (02) ==
PROVIDERS: Physician Assistant; Emergency Provider Emergency Medicine
DX: K80.00 Calculus of gallbladder with acute cholecystitis without obstruction (principal); E80.6 Other disorders of bilirubin metabolism; R74.01 Elevation of levels of liver transaminase levels; R10.9 Unspecified abdominal pain; R11.11 Vomiting without nausea
CPT/HCPCS: 74177; 80053; 83605; 83690; 83735; 85007; 85025; 85027; 85610; 96365; 96366; 96374; 96375; 99285; J0131; J1885; J1956; J2270; J7030; Q0162; Q9967